=== PATIENT | female | born 1985 | race Two or more races ===

== ENCOUNTER 2021-01-18 09:48 | Outpatient (CLI) | payer OTHER | END 2021-01-18 09:58 | disposition home or self-care (01) | LOC: RX STUDY 09:48 → SONOGRAMA 09:48 → RX STUDY 09:58 | PROVIDERS: ATTEND Obstetrics & Gynecology | DX: N84.0 Polyp of corpus uteri (principal) ==

== ENCOUNTER 2021-03-14 21:44 | Emergency (ER) | payer OTHER ==
[~2021-03-14] VITALS: Ht 160 cm; Wt 68.0 kg
[2021-03-14] MEDS ORDERED: [UNRECOGNIZED DRUG - OTHER] (22:29)
[2021-03-15] MEDS ORDERED: CEPHALEXIN500 MG PO ×2 (04:37)
[2021-03-15] MEDS ORDERED: KETO10TA2 PO ×2 (04:37)
== END 2021-03-15 04:44 ==
LOC: ER 21:44
DX: N39.0 Urinary tract infection, site not specified (principal)